=== PATIENT | female | born 1965 | race Caucasian/White ===

== ENCOUNTER 2016-10-21 08:35 | Day surgery (SDC) | payer OTHER, BC ==
--- NOTE | 2016-10-18 09:07 | HP ---
DATE OF CLINIC: 10/12/16 MERLY NDIAYE : 1965 PLANNED PROCEDURE: Right Carpal Tunnel Release DATE OF SURGERY: October 21, 2016 SURGEON: Alberto Medrano M.D. PCP: Tata Jennings MD REFERRED HERE Tata Jennings MD. HISTORY OF PRESENT ILLNESS Merly Ndiaye is a 51 year old female. * Medication list reviewed with patient allergy list reviewed with patient. * Tried NSAIDS Not supposed to take due to lapband surgery - has tired some( naproxen,advil) * Has not tried Physical Therapy * Has not tried Injections Patient is new to our office and is being seen today for complaint of bilateral carpal tunnel syndrome. She has had symptoms of bilateral hand discomfort for the past three years. She had a nerve conduction study performed on 10/30/2015, which showed bilateral, moderate carpal tunnel syndrome. She has tried cock-up wrist braces. 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 Otherwise, she will need to wait until summer. The upholstery department supervisor also has communicated that she requires full activities and no restrictions in order to return to work. Patient also has some complaints of discomfort in the bilateral cubital tunnel at the elbows. PAST MEDICAL/SURGICAL HISTORY Reported: Medical: A previous fracture, Reported numbness, Reported tingling, Depression, and Hypertension. Surgical / Procedural: Prior surgery Lap band placement 2008, Caesarean Section 2000, and Hernia repair umbilical hernia repair 2004. SOCIAL HISTORY Behavioral: Not a current smoker and not chewing tobacco. Never smoked. Smoking status: Never smoker. Alcohol: Alcohol. Drug Use: Not using drugs. 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 FAMILY HISTORY Father in fair health Osteoarthritis Family medical history brother- Diabetes, hypertension REVIEW OF SYSTEMS No recent constitutional symptoms to include fevers and chills. No cardiovascular symptoms to include chest pain or palpitations. No respiratory symptoms to include shortness of breath or recent infections. PHYSICAL FINDINGS * Vitals taken 10/12/2016 01:11 pm BP-Sitting R 130/74 mmHg Pulse Rate-Sitting 69 bpm Temp-Oral 97.6 F Height 64 in Weight 293 lbs Body Mass Index 50.3 kg/m2 Body Surface Area 2.30 m2 Pain Level 2 Ears, Nose, Throat: * ENT: normal. Lungs: * Clear to auscultation. Cardiovascular: Heart Rate And Rhythm: * Normal. Abdomen: * Normal. Neurological: Motor: * Dominant Hand = Right Hand. GENERAL: Patient is alert and oriented and in no acute distress. She ambulates in on her own, without wrist braces. BILATERAL HAND/WRIST/ELBOW EXAM: Patient has bilateral Phalen's/Tinel's/compression test, consistent with carpal tunnel syndrome. She also has bilateral medial cubital tunnel elbow discomfort without apparent ulnar nerve subluxation. She has irritation with Tinel's and elbow flexion, more prominent on the right than on the left. Sensation intact throughout all fingers to light touch. DPC of the fingers is 0. Thumb opposition is 1 centimeter bilaterally. APB strength is 5/5. There is no thenar or hypo-thenar atrophy. Wrist [id number] is full bilaterally. Elbow [id number] is full bilaterally. IMAGING Nerve conduction study report was reviewed. Report shows bilateral moderate carpal tunnel syndrome. Please refer to nerve conduction study report for further details. ASSESSMENT * Bilateral carpal tunnel syndrome Bilateral, moderate carpal tunnel syndrome x 3 years THERAPY * Patient not eligible for fall risk assessment. PLAN * Pain in unspecified wrist Radiology/X-ray: Wrist Routine Left X-ray 73879, Wrist Routine Right X-ray [id number] * OTHER Alda 5-325 MG TABS, 1or 2 tablets every 4 to 6 hours as needed, 5 days, 0 refills * Decompression of median nerve at carpal tunnel -right Patient is seen today with complaint of bilateral hand discomfort. Nerve conduction study and exam are consistent with carpal tunnel syndrome bilaterally. I have consulted Dr. Medrano after speaking with the patient, and patient is interested in proceeding with open carpal tunnel release of right wrist at this time. Dr. Medrano has met with the patient and discussed surgery, as well as risks and benefits of the procedure. Patient will plan to proceed with surgery at the next available date. CARE TEAM Tata Jennings MD [facility] SURGICAL CONSENT We have discussed surgical options including right carpal tunnel release and nonoperative management. The patient was counseled in detail regarding the diagnosis, treatment options available, prognosis of each treatment option and the potential risks and complications. The risks of surgery include, but are not limited to, anesthetic , neurovascular complications, pulmonary embolism, deep vein thrombosis, wound dehiscence, failure of any or all of the discussed procedures, infection of the joint or surrounding soft tissue, need for revision surgery, chronic pain, limitations in activities of daily living, inability to return to work, and loss of normal range of motion or functional use of the extremity. There is the possibility of failure over time that may require additional operative or nonoperative treatment. The patient acknowledged that there are a number of perioperative risks not mentioned here and would still like to proceed. The patient is aware of and understands these risks, and wishes to proceed with the proposed surgical procedure and other procedures as indicated at the time of surgery. We will have the patient see their PCP for a preoperative medical risk assessment. The preoperative instructions were reviewed with the patient and all questions were answered.
[~2016-10-21 08:35] MED LIST: FENTANYL 100 MCG/2 ML VIAL ONE; IV START KIT ONE; LACTATED RINGERS 1,000 ML ONE; LIDOCAINE 1% (PRES FREE) 30 ML VIAL ONE; MIDAZOLAM HCL 1 MG/ML 2ML VIAL ONE; SODIUM CHLORIDE 0.9% FLUSH 10 ML ONE
[2016-10-21] MEDS ORDERED: CEFAZOLIN SODIUM 2 GRAM PREMIX 100 ML IV PRN (08:45)
[2016-10-21] MEDS ORDERED: CEFAZOLIN SODIUM 2 GRAM PREMIX 100 ML IV ONE (09:15)
[2016-10-21] MEDS ORDERED: ONDANSETRON 4 MG/2ML 2 ML VIAL ONE (09:48)
[2016-10-21] MEDS ORDERED: BUPIVACAINE 0.5% W/EPI SDV 30 ML VIAL ONE (09:52)
[2016-10-21] MEDS ORDERED: ATROPINE SULFATE 0.4 MG/1 ML VIAL IV PRN (09:54)
[2016-10-21] MEDS ORDERED: PROMETHAZINE HCL 25 MG/ML VIAL IM PRN (09:54)
[2016-10-21] MEDS ORDERED: ONDANSETRON 4 MG/2ML 2 ML VIAL IV PRN ×2 (09:54→10:27)
[2016-10-21] MEDS ORDERED: FENTANYL 100 MCG/2 ML VIAL IV PRN (09:54)
[2016-10-21] MEDS ORDERED: NALOXONE HCL 0.4 MG/ML VIAL IV PRN (09:54)
[2016-10-21] MEDS ORDERED: LIDOCAINE 2% (PRES FREE) 5 ML VIAL ONE (09:56)
[2016-10-21] MEDS ORDERED: PROPOFOL 40 ML IV ONE (09:56)
[2016-10-21] MEDS ORDERED: LACTATED RINGERS 1,000 ML IV SCH ×2 (10:00→10:27)
--- NOTE | 2016-10-21 10:09 | PCMBPN ---
Brief Post Op Note: Date of Procedure: 10/21/16 Start Time: 929 Preoperative Diagnosis: 1. right carpal tunnel syndrome Postoperative Diagnosis: 1. Same Procedure: right open carpal tunnel release Surgeon: Alberto Medrano MD Assist: none Anesthesia: Arnol Celis Findings: as above Condition: stable to PACU Complications: none IV Fluids: 600 mLs of LR Urine Output: 0 mLs Estimated Blood Loss: 5 mLs Tourniquet Time: 23 min at 250 mm Hg Specimens: none Implants: none Drains: none Alberto Medrano MD
[2016-10-21] MEDS ORDERED: OXYCODONE HCL 5 MG TABLET PO PRN (10:27)
[2016-10-21] MEDS ORDERED: ACETAMINOPHEN 325 MG TABLET PO PRN (10:27)
[2016-10-21] MEDS ORDERED: DIPHENHYDRAMINE HCL 50 MG/1 ML VIAL IV PRN (10:27)
[2016-10-21] MEDS ORDERED: HYDROMORPHONE HCL 1 MG/ML SYRINGE IV PRN (10:27)
[2016-10-21] MEDS ORDERED: HYDROCODONE/ACETAMINOPHEN 5/325MG TABLET ONE (10:35)
[2016-10-21] MEDS ORDERED: HYDROCODONE/ACETAMINOPHEN 5/325MG TABLET PO PRN (10:38)
--- NOTE | 2016-10-22 09:18 | OP ---
Mayi NDIAYE : 1965 [id number] DATE OF SERVICE: October 21, 2016 PREOPERATIVE DIAGNOSIS: Right carpal tunnel syndrome. POSTOPERATIVE DIAGNOSIS: Right carpal tunnel syndrome. PROCEDURE PERFORMED: RIGHT CARPAL TUNNEL RELEASE. SURGEON: Alberto Medrano M.D. DISABILITY CASE MANAGER: None. ANESTHESIA: Arnol Celis C.R.N.A. SPECIMENS: No material was sent to the laboratory. ESTIMATED BLOOD LOSS: 5 mL FLUIDS REPLACED: 600 mL of crystalloid. TOURNIQUET TIME: 23 minutes at 250 mmHg. IMPLANTS: None. DRAINS: None. INDICATIONS: This is a 51-year-old right hand dominant patient with history, physical exam and neurodiagnostic findings of right carpal tunnel syndrome, which has failed to be relieved by nonoperative measures. Risks, benefits and alternatives of an open carpal tunnel release were discussed with the patient and they elected to proceed with surgery. Informed consent was obtained and documented in the chart and the patient was placed on the schedule the first available convenience. DESCRIPTION OF PROCEDURE: The patient was identified in the pre-operative holding area where they were marked with an indelible marker by the operating surgeon. The patient was taken to the operating room where they were placed in the supine position on the operating room table. A Pérez block anesthetic was administered by the anesthesia provider. The patient was prepped and draped in the usual sterile fashion for surgery and received perioperative antibiotics prior to the inflation of the tourniquet. A final operative time out was performed and confirmed by all members of the operative team and a longitudinal incision was made on the patient's hand just 6 mm ulnar to the thenar flexion crease. Dissection was carried down identifying transverse fibers of the transverse carpal ligament. This was sharply divided at its proximal extent and the median nerve was visualized. A [place] elevator was passed into the carpal tunnel to protect the nerve while the remainder of the transverse carpal ligament was sharply divided. This was carried distally until we encountered the perivascular fat of the vascular arches. The tenotomy scissors were passed both superficial and deep to the distal volar forearm fascia proximally and no transligamentous branches of the nerve were identified. Under direct visualization a push cut technique was used to divide the proximal portion of the transverse carpal ligament and the distal volar forearm fascia. At this point we felt that we had achieved an adequate release of the patient's nerves so the wound was copiously irrigated with sterile saline and closed with horizontal mattress sutures of #4-0 Nylon. A sterile dressing of Xeroform, fluffs, web roll and an SOPHY bandage was applied. The tourniquet was deflated, the drapes were removed. The patient was transferred to a stretcher and taken postoperatively to the same day surgery unit in stable condition. There were no observed intraoperative complications during this procedure. Job [id number] Cc: [facility]
== END 2016-10-21 11:13 | disposition home or self-care (01) ==
LOC: SDC 08:35
PROVIDERS: ATTEND Orthopaedic Surgery
PROC: 01N50ZZ Release Median Nerve, Open Approach (ICD-10-PCS; principal; 2016-10-21)
DX: G56.03 Carpal tunnel syndrome, bilateral upper limbs (principal)
CPT/HCPCS: 64721; J3010; J2250; J2001; J2405; J7120; A9270; J0690